=== PATIENT | male | born 1985 | race Caucasian/White ===

== ENCOUNTER 2017-04-06 12:25 | Emergency (ER) | payer BC, SELFPAY ==
--- NOTE | 2017-04-06 13:32 | HMH.EDUTC ---
[facility] – [place] Disposition Clinical Impression: URI (upper respiratory infection) Qualifiers: URI type: unspecified URI Qualified Code(s): J06.9 - Acute upper respiratory infection, unspecified Disposition: Home, Self-Care Condition on Discharge: Good Instructions: DI for Cough -- Adult, Sore Throat, DI for Sinusitis Additional Instructions: * Monitor Temp. Tylenol and/or Ibuprofen as needed. ER if fever is no less than 101 despite alternating Tylenol and Ibuprofen * Encourage fluids, water, Gatorade, powerade, pedialyte if /toddler/or child * Warm salt water gargles for throat irritation *Warm fluids *Sore throat lozenges *Sleep elevated *humidifier or vaporizer Lots of rest Increase fluids, water, Gatorade, powerade Follow up IMMEDIATELY for new or worsening of symptoms OR no noticeable improvement over the next 48-72 hours. 911 immediately for any life threatening symptoms such as chest pain or difficulty breathing Prescriptions: Azithromycin [Z-Drew 250mg Tab] 250 mg PO UD DOSE PK #6 tab Dextromethorphan Polistirex [Delsym] 10 ml PO Q12H PRN #300 med.er.12h PRN Reason: Cough Fluticasone Propionate [Flonase 50mcg nasal spray 16gm] 2 spr NS DAILY #1 bottle predniSONE [Prednisone 5mg Tab Dose-Pack] 5 mg PO UD DOSE PK #21 pack Referrals: Jordana Sykes [Primary Care Provider] - As needed Time of Disposition: 14:25 Medical Decision Making - Medical Records Medical records reviewed: Yes: I reviewed the patient's medical records. Vital Signs: 04/06/17 13:37 Temperature 97.5 F L Temperature Source Temporal Artery Scan Pulse Rate [Right Radial] 72 Respiratory Rate 20 Blood Pressure [Right Arm] 127/88 Blood Pressure Mean [Right Arm] 101 Blood Pressure Source [Right Arm] Automatic Cuff Blood Pressure Position [Right Arm] Sitting 02 Sat by Pulse Oximetry 96 Oxygen Delivery Method Room Air - Lab Data Lab results reviewed: Yes: I reviewed the patient's lab results. Lab Results 04/06/17 13:53: Influenza Type A Ag Negative, Influenza Type B Ag Negative, Strep Scn Rapid Clinic Negative - Uday Inquiry Pt receiving controlled substance: No Uday was queried for this patient: No [facility] [place] HPI - General Stated complaint: nausea sore throat r ear pain congestion - History of Present Illness Provider Complaint: Patient state that he has had sorethroat, sinus pain and pressure along with ear aches for the last week State that he has felt feverish, had chills and over all not felt well State that today his son is sick also so they came in to get checked out State that also he is currently being treated for problems with his right ear and awaiting CT results by doctor - Related Data Previous Rx's Medication Instructions Recorded Azithromycin [Z-Drew 250mg Tab] 250 mg PO UD DOSE PK #6 tab 04/06/17 Dextromethorphan Polistirex 10 ml PO Q12H PRN #300 med.er.12h 04/06/17 [Delsym] Fluticasone Propionate [Flonase 2 spr NS DAILY #1 bottle 04/06/17 50mcg nasal spray 16gm] predniSONE [Prednisone 5mg Tab 5 mg PO UD DOSE PK #21 pack 04/06/17 Dose-Pack] Allergies Allergy/AdvReac Type Severity Reaction Status Date / Time No Known Allergies Allergy Verified 04/06/17 13:42 [facility] History I have reviewed the patient's past medical history: Yes ROS Obtained: Yes All systems reviewed & no additional complaints Physical Exam - General General appearance: alert, in no apparent distress - Expanded ENT Exam Nose exam: Present: sinus tenderness, other (Tenderness noted maxillary sinus report thick yellowish green mucous from nose) Comment: Throat red, irritated - Respiratory Respiratory exam: Present: normal lung sounds bilaterally. Absent: respiratory distress - Cardiovascular Cardiovascular exam: Present: regular rate, normal rhythm. Absent: JVD - Neurological Exam Neurological exam: Present: alert, oriented X3
[2017-04-06 13:37] VITALS: BP 127/88; PULSE 72; RESP 20; TEMP 36.4; O2SAT 96; BMI 35.3
--- NOTE | 2017-04-06 13:42 | ED_ITS ---
[facility] [place] Disposition Clinical Impression: URI (upper respiratory infection) Qualifiers: URI type: unspecified URI Qualified Code(s): J06.9 - Acute upper respiratory infection, unspecified Disposition: Home, Self-Care Condition on Discharge: Good Instructions: DI for Cough -- Adult, Sore Throat, DI for Sinusitis Additional Instructions: * Monitor Temp. Tylenol and/or Ibuprofen as needed. ER if fever is no less than 101 despite alternating Tylenol and Ibuprofen * Encourage fluids, water, Gatorade, powerade, pedialyte if /toddler/or child * Warm salt water gargles for throat irritation *Warm fluids *Sore throat lozenges *Sleep elevated *humidifier or vaporizer Lots of rest Increase fluids, water, Gatorade, powerade Follow up IMMEDIATELY for new or worsening of symptoms OR no noticeable improvement over the next 48-72 hours. 911 immediately for any life threatening symptoms such as chest pain or difficulty breathing Prescriptions: Azithromycin [Z-Drew 250mg Tab] 250 mg PO UD DOSE PK #6 tab Dextromethorphan Polistirex [Delsym] 10 ml PO Q12H PRN #300 med.er.12h PRN Reason: Cough Fluticasone Propionate [Flonase 50mcg nasal spray 16gm] 2 spr NS DAILY #1 bottle predniSONE [Prednisone 5mg Tab Dose-Pack] 5 mg PO UD DOSE PK #21 pack Referrals: Jordana Sykes [Primary Care Provider] - As needed Time of Disposition: 14:25 Medical Decision Making - Medical Records Medical records reviewed: Yes: I reviewed the patient's medical records. Vital Signs: 04/06/17 13:37 Temperature 97.5 F L Temperature Source Temporal Artery Scan Pulse Rate [Right Radial] 72 Respiratory Rate 20 Blood Pressure [Right Arm] 127/88 Blood Pressure Mean [Right Arm] 101 Blood Pressure Source [Right Arm] Automatic Cuff Blood Pressure Position [Right Arm] Sitting 02 Sat by Pulse Oximetry 96 Oxygen Delivery Method Room Air - Lab Data Lab results reviewed: Yes: I reviewed the patient's lab results. Lab Results 04/06/17 13:53: Influenza Type A Ag Negative, Influenza Type B Ag Negative, Strep Scn Rapid Clinic Negative - Uday Inquiry Pt receiving controlled substance: No Uday was queried for this patient: No [facility] [place] HPI - General Stated complaint: nausea sore throat r ear pain congestion - History of Present Illness Provider Complaint: Patient state that he has had sorethroat, sinus pain and pressure along with ear aches for the last week State that he has felt feverish , had chills and over all not felt well State that today his son is sick also so they came in to get checked out State that also he is currently being treated for problems with his right ear and awaiting CT results by doctor - Related Data Previous Rx's Medication Instructions Recorded Azithromycin [Z-Drew 250mg Tab] 250 mg PO UD DOSE PK #6 tab 04/06/17 Dextromethorphan Polistirex 10 ml PO Q12H PRN #300 med.er.12h 04/06/17 [Delsym] Fluticasone Propionate [Flonase 2 spr NS DAILY #1 bottle 04/06/17 50mcg nasal spray 16gm] predniSONE [Prednisone 5mg Tab 5 mg PO UD DOSE PK #21 pack 04/06/17 Dose-Pack] Allergies Allergy/AdvReac Type Severity Reaction Status Date / Time No Known Allergies Allergy Verified 04/06/17 13:42 [facility] History I have reviewed the patient's past medical history: Yes ROS Obtained: Yes All systems reviewed & no additional complaints Physical
[2017-04-06 13:56] LABS: UTC Influenza A Antigen Negative (Negative); UTC Influenza B Antigen Negative (Negative); UTC Strep Screen (Rapid) Negative (Negative)
[2017-04-06 14:37] VITALS: BP 130/67; PULSE 92; RESP 20; TEMP 36.9; O2SAT 100
== END 2017-04-06 14:37 | disposition home or self-care (01) ==
PROVIDERS: Emergency Provider Nurse Practitioner; PCP Family Medicine
DX: J06.9 Acute upper respiratory infection, unspecified (principal)
CPT/HCPCS: 87804; 87880; 99202

== ENCOUNTER 2019-05-26 14:17 | Emergency (ER) | payer BC, SELFPAY ==
[2019-05-26 14:28] VITALS: PULSE 97; RESP 18; TEMP 36.8; O2SAT 97; BMI 34.2
--- NOTE | 2019-05-26 15:32 | HMH.COUGH ---
Cough Clinic HPI - History of Present Illness Complaint:: Recent contact with positive case, work made him come to clinic HPI:: 33-year-old otherwise healthy male who works at the [employer]. Had contact with a recently diagnosed positive case approximately 10 to 12 days ago per his recollection. Denies any symptoms. States he has had no cough, congestion, fever, GI symptoms, headache, body aches, fatigue. Was told by work that he needed to quarantine and come to the clinic for a note attesting to such. Otherwise at baseline today. Home Medications: Home Medications Medication Instructions Recorded Confirmed Type No Known Home Medications 05/26/19 05/26/19 History Allergies/Adverse Reactions: Allergies Allergy/AdvReac Type Severity Reaction Status Date / Time No Known Allergies Allergy Verified 05/26/19 14:27 [facility] Triage - Symptoms Fever History: No Chills: No Myalgia: No Nasal Drainage: No Sore Throat: No Productive Cough: No Non-productive Cough: No Ear or Sinus Pain: No Joint Pain: No Chest Pain: No Rash: No Shortness of Breath: No Nausea or Vomitting: No Headache: No Abdominal Pain: No Diarrhea: No - Exposure History Foreign Travel: No Direct Contact with COVID-19 Patient: Yes If YES, Who:: jhon When:: 05/16/19 Distance/Proximity to Contact:: close Length of Time in Direct Contact:: 6 hours - Risk Factors Greater than 60 Years Old: No COPD: No Diabetes: No Heart Disease: No Home Oxygen Use: No Chronic Renal Disease: No Chronic Liver Disease: No Neurologic/Neurodevelopmental/intellectual disability: No Other Chronic Diseases: No Current Smoker: Yes Former Smoker: No [facility] History I have reviewed the patient's past medical history: Yes Medical History: Denies:: Cancer, Diabetes Mellitus Type 1, Diabetes Mellitus Type 2, Hypertension, MRSA Other Medical History: Reports: Other (kidney stones) Laterality Cases: Bilateral: Tonsillectomy Other Surgeries: Yes: Other Amputation: No Comment: ear, hand, kidney stones removed - 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 Smoking Status: Current every day smoker Tobacco Type: cigarettes # Packs/Day (cigarettes): 1 Alcohol Intake: never Substance Use Type: denies use Occupational Status: other Family Hx:: Non-contributory ROS Obtained: Yes All systems reviewed & no additional complaints Cough Clinic Exam - General General appearance: alert, in no apparent distress - Head Head exam: atraumatic, normocephalic, normal inspection - Eye Eye exam: Present: normal appearance, PERRL, EOMI - ENT ENT exam: Present: normal exam, normal oropharynx, mucous membranes moist, TM's normal bilaterally, normal external ear exam - Neck Neck exam: Present: normal inspection, full ROM, trachea midline. Absent: meningismus, lymphadenopathy - Chest Chest inspection: Present: normal inspection, symmetric chest wall rise. Absent: tenderness - Respiratory Respiratory exam: Present: normal lung sounds bilaterally. Absent: respiratory distress - Cardiovascular Cardiovascular exam: Present: regular rate, normal rhythm. Absent: JVD - Extremities Exam Extremities exam: Present: normal inspection, full ROM, normal capillary refill. Absent: calf tenderness - Neurological Exam Neurological exam: Present: alert, oriented X3 - Skin Skin exam: Present: warm, dry, intact, normal color - Lymphatic Lymphatic Findings: no adenopathy Cough Clinic MDM Vital Signs: 05/26/19 14:28 Temperature 98.3 F Temperature Source Oral Pulse Rate [Right Brachial] 97 H Respiratory Rate 18 02 Sat by Pulse Oximetry 97 Oxygen Delivery Method Room Air Medical Decision Narrative: 33-year-old male with no symptoms of coronavirus. Last exposure conservative and of 10 days ago to a recently diagnosed positive case. Recommend patient continuing quarantine at home for 1 more week with return to work on Wednesday, June 04 as long as he remains asymptomatic. No treatment n
[2019-05-26 16:07] VITALS: BP 150/80; PULSE 80; RESP 18; TEMP 36.8; O2SAT 98
== END 2019-05-26 16:07 | disposition home or self-care (01) ==
PROVIDERS: Emergency Provider Internal Medicine Adolescent Medicine
DX: Z20.828 Contact with and (suspected) exposure to other viral communicable diseases (principal)
CPT/HCPCS: 99201; 99212

== ENCOUNTER 2019-11-06 22:49 | Emergency (ER) | payer BC, SELFPAY ==
[2019-11-06 22:58] VITALS: BP 119/61; PULSE 75; RESP 16; TEMP 36.6; O2SAT 99; BMI 34.2
--- NOTE | 2019-11-06 23:05 | CT_ITS ---
PROCEDURE: CT ABDOMEN PELVIS WO CON CLINICAL INDICATION: KIDNEY STONE RULE OUT Right flank pain COMPARISON: No exams were available for comparison TECHNIQUE: Axial images obtained with sagittal and coronal reformats. All CT scans at the facility use one or more dose reduction, viz: automated exposure control, ma/kV adjustment per patient size (including targeted exams where dose is matched to indication, i.e. head), or iterative reconstruction technique. FINDINGS: LOWER THORAX: On the most superior image there is a 4 mm subpleural opacity in the right middle lobe anteriorly nonspecific ABDOMEN & PELVIS: The liver, gallbladder, adrenal glands, and pancreas have an unremarkable appearance. There is mild splenomegaly at 14 cm. There are bilateral renal calculi which measure up to 6 mm in the lower pole on the left and 3 mm in the upper pole on the right. There is mild right hydronephrosis secondary to a 5 mm stone in the proximal right ureter at the ureteral pelvic junction. No distal ureteral calculi. Unremarkable appendix. No intestinal obstruction or free air. There are few small mesenteric lymph nodes. There is a small right inguinal hernia which contains fat. No acute bony findings. IMPRESSION: 1. 5 mm stone in the right ureteropelvic junction with mild right hydronephrosis 2. Bilateral nephrolithiasis. 3. Other nonspecific nonacute findings as described above. Dictated by: Jessee Martinez MD 11/07/2019 06:25 Jessee Martinez MD in [place] 11/07/2019 06:25
[2019-11-06 23:11] LABS: Basophils # 0.1 K/mm3 (0-0.2); Basophils % 0.9 % (0.1-2.0); Eosinophils # 0.2 K/mm3 (0.0-0.4); Eosinophils % 2.2 % (0.1-12.0); Hematocrit 51.5 % (42.0-52.0); Hemoglobin 17.7 g/dL (14.1-18.0); Lymphocytes # 3.7 K/mm3 (0.7-4.5); Lymphocytes % 34.2 % (10-50); Mean Corpuscular HGB Conc 34.3 g/dL (31.8-35.4); Mean Corpuscular Hemoglobin 29.9 pg (27.0-31.2); Mean Corpuscular Volume 87.1 fl (80-94); Mean Platelet Volume 6.6 fl (7.4-10.4); Monocytes # 0.8 K/mm3 (0.1-1.0); Monocytes % 7.6 % (1.7-9.3); Neutrophils % 55.1 % (37.0-80.0); Platelet Count 438 K/mm3 (142-424); Red Blood Count 5.92 M/mm3 (4.60-6.20); Red Cell Distribution Width 12.6 % (11.5-17.5); White Blood Count 10.9 K/mm3 (4.8-10.8)
[2019-11-06 23:19] LABS: Chloride 101 mmol/L (98-107)
[2019-11-06 23:20] LABS: Potassium 3.3 mmoL/L (3.5-5.1); Sodium 141 mmol/L (136-145)
[2019-11-06 23:22] LABS: Alanine Aminotransferase 60 U/L (12-78); Alkaline Phosphatase 85 U/L (38-126); Amylase 136 U/L (30-110); Anion Gap 16.3 mEq/L (5-15); Aspartate Amino Transferase 39 U/L (17-59); Bilirubin,Total 0.6 mg/dl (0.2-1.3); Blood Urea Nitrogen 22 mg/dl (9-20); Calcium 10.2 mg/dl (8.4-10.2); Carbon Dioxide 27 mmol/L (22.0-30.0); Creatinine Clearance Estimated 134 mL/min (50-200); Estimated Glomerular Filt Rate 63 ml/min (>60); GFR (African American) 76 ML/MIN (>60); Glucose 112 mg/dl (74-100); Lipase 110 U/L (23-300)
[2019-11-06 23:23] LABS: Albumin Level 5.3 g/dl (3.5-5.0); Albumin/Globulin Ratio 1.4 (1.1-1.8); Globulin 3.8 g/dL (1.3-3.2); Total Protein,Serum 9.1 g/dl (6.3-8.2)
[2019-11-06 23:50] VITALS: BP 122/85; PULSE 64; RESP 18; O2SAT 100
--- NOTE | 2019-11-07 00:04 | HMH.EDNVD ---
ED Disposition Clinical Impression: Renal colic, Renal insufficiency Disposition: Home, Self-Care Condition on Discharge: Good Instructions: DI for Kidney Stones Additional Instructions: fluids and call urology in am Prescriptions: Tamsulosin HCl [Flomax 0.4mg capsule] 0.4 mg PO HS #10 cap Transmission Status: Pending to [facility] #[id number] Referrals: PCP,No [Primary Care Provider] - Hadley Lin MD [Staff Physician] - - Critical Care Critical Care Time: No Attestation: On 11/06/19, the high probability of a clinically significant, sudden or life threatening deterioration of the following system(s) required my full and direct attention, intervention and personal management. The time I documented below is in addition to time spent performing reported procedures but includes the following listed in this critical care notation. Medical Decision Making - Medical Records Medical records reviewed: Yes: I reviewed the patient's medical records. - Uday Inquiry Pt receiving controlled substance: No Vital Signs: 11/06/19 22:58 11/06/19 23:50 Temperature 97.9 F Temperature Source Oral Pulse Rate [Right Brachial] 75 64 Respiratory Rate 16 18 Blood Pressure [Right Arm] 119/61 122/85 Blood Pressure Mean [Right Arm] 80 97 Blood Pressure Source [Right Arm] Automatic Cuff Blood Pressure Position [Right Arm] Sitting 02 Sat by Pulse Oximetry 99 100 Oxygen Delivery Method Room Air Room Air - Lab Data Lab results reviewed: Yes: I reviewed the patient's lab results. Lab Results 11/06/19 23:05: WBC 10.9 H, RBC 5.92, Hgb 17.7, Hct 51.5, MCV 87.1, MCH 29.9, MCHC 34.3, RDW 12.6, Plt Count 438 H, MPV 6.6 L, Neut % (Auto) 55.1, Lymph % (Auto) 34.2, [place] % (Auto) 7.6, Eos % (Auto) 2.2, Baso % (Auto) 0.9, Neut # (Auto) 6.0, Lymph # (Auto) 3.7, [place] # (Auto) 0.8, Eos # (Auto) 0.2, Baso # (Auto) 0.1 11/06/19 23:05: Sodium 141, Potassium 3.3 L, Chloride 101, Carbon Dioxide 27, Anion Gap 16.3 H, BUN 22 H, Creatinine 1.30 H, Estimated Creat Clear 134, Estimated GFR 63, Est GFR ( Amer) 76, Glucose 112 H, Calcium 10.2, Total Bilirubin 0.6, AST 39, ALT 60, Alkaline Phosphatase 85, Total Protein 9.1 H, Albumin 5.3 H, Globulin 3.8 H, Albumin/Globulin Ratio 1.4, Amylase 136 H, Lipase 110 Result diagrams: 11/06/19 23:05 11/06/19 23:05 Orders (Tests/Meds): ED MEDICATIONS Generic Name Dose Route Start Last Admin Trade Name Freq PRN Reason Stop Dose Admin Sodium Chloride 1,000 mls @ 999 mls/hr 11/06/19 23:15 11/06/19 23:15 Sod Chlor 0.9% 1000ml Bag IV 11/07/19 00:15 999 mls/hr .Q1H1M RONAK Administration Tamsulosin HCl 0.4 mg 11/07/19 00:14 11/07/19 00:15 Flomax 0.4mg Capsule PO 12/07/19 00:13 0.4 mg HS RONAK Administration Discontinued Medications Generic Name Dose Route Start Last Admin Trade Name Freq PRN Reason Stop Dose Admin Ketorolac Tromethamine 30 mg 11/06/19 23:03 11/06/19 23:12 Toradol 30mg/Ml Vial IV 11/06/19 23:04 30 mg ONCE ONE Administration Morphine Sulfate 4 mg 11/06/19 23:50 11/06/19 23:52 Morphine 4mg/Ml Syringe IV 11/06/19 23:51 4 mg ONCE ONE Administration Ondansetron HCl 4 mg 11/06/19 23:03 11/06/19 23:12 Zofran 4mg/2ml Vial IV 11/06/19 23:04 4 mg ONCE ONE Administration Tamsulosin HCl 0.4 mg 11/07/19 21:00 Flomax 0.4mg Capsule PO 12/07/19 20:59 HS RONAK ORDERS Category Date Time Status CT abdomen pelvis wo con Stat Cat Scan 11/06/19 23:05 Taken Urinalysis and Microscopic Stat Lab 11/06/19 23:04 Ordered - CT Data CT Scan: Abdomen, Pelvis Time Received: 00:[address] Reviewed: Yes: I have viewed the radiologist's interpretation Preliminary Findings: Abnormal (4 mm rt prox stone ) Nausea/Vomiting/Diarrhea HPI - General Chief complaint: Back Pain/Injury Stated complaint: right flank pain Time Seen by Provider: 11/06/19 23:15 Mode of Arrival: Ambulatory Source of Information: Patient, Spou
[2019-11-07 00:52] VITALS: BP 110/62; PULSE 62; RESP 14; TEMP 36.6; O2SAT 99
== END 2019-11-07 00:57 | disposition home or self-care (01) ==
PROVIDERS: Emergency Provider Emergency Medicine
DX: N23 Unspecified renal colic (principal); N28.9 Disorder of kidney and ureter, unspecified; Z87.442 Personal history of urinary calculi; F17.210 Nicotine dependence, cigarettes, uncomplicated
CPT/HCPCS: 74176; 80053; 82150; 83690; 85025; 96365; 96375; 99283; J2405

== ENCOUNTER → 2019-11-14 14:46 | Outpatient (CLI) | payer BC, SELFPAY ==
--- NOTE | 2019-11-14 14:50 | XR_ITS ---
PROCEDURE: XR KUB CLINICAL INDICATION: ureteral stone Right-sided flank pain COMPARISON: CT CT ABDOMEN PELVIS WO CON from 11/06/2019 FINDINGS: There is a 3 mm stone in the mid right ureter between the L3 and L4 transverse process. There is a 6 mm stone overlying the lower pole of the left kidney. A 2 mm stone is present in the upper pole of the right kidney. IMPRESSION: Bilateral nephrolithiasis with 3 mm right mid ureteral stone Dictated by: Jessee Martinez MD 11/14/2019 17:31 Jessee Martinez MD in [place] 11/14/2019 17:31
== END ==
PROVIDERS: Visit Provider Urology
DX: N20.1 Calculus of ureter (principal)
CPT/HCPCS: 74018

== ENCOUNTER → 2019-11-28 14:39 | Outpatient (CLI) | payer BC, SELFPAY ==
--- NOTE | 2019-11-28 14:42 | XR_ITS ---
PROCEDURE: XR KUB CLINICAL INDICATION: kidney stone COMPARISON: CT CT ABDOMEN PELVIS WO CON from 11/06/2019 FINDINGS: 7 mm stone overlies the lower pole of the left kidney. No other significant anomalies are evident. IMPRESSION: Left nephrolithiasis. Dictated by: Jessee Martinez MD 11/28/2019 15:05 Jessee Martinez MD in [place] 11/28/2019 15:05
== END ==
PROVIDERS: Visit Provider Pathology Anatomic Pathology & Clinical Pathology
DX: N20.0 Calculus of kidney (principal)
CPT/HCPCS: 74018

== ENCOUNTER → 2019-12-05 14:45 | Outpatient (CLI) | payer BC, SELFPAY ==
--- NOTE | 2019-12-05 14:47 | XR_ITS ---
PROCEDURE: XR KUB CLINICAL INDICATION: kidney stone COMPARISON: CT CT ABDOMEN PELVIS WO CON from 11/06/2019 FINDINGS: A 7 mm stone overlies the lower pole of the left kidney. There are 2 calcific densities in the right pelvic region overlying the lateral aspect of the sacrum and could be due to phleboliths or small ureteral calculi each measuring 3 mm. IMPRESSION: Left nephrolithiasis. Small right distal ureteral calculi versus phleboliths Dictated by: Jessee Martinez MD 12/05/2019 15:41 Jessee Martinez MD in [place] 12/05/2019 15:41
== END ==
PROVIDERS: PCP Internal Medicine Adolescent Medicine; Visit Provider Urology
DX: N20.0 Calculus of kidney (principal)
CPT/HCPCS: 74018

== ENCOUNTER → 2019-12-09 09:48 | Outpatient (CLI) | payer BC, SELFPAY ==
[2019-12-09 10:50] LABS: Basophils # 0.1 K/mm3 (0-0.2); Basophils % 0.7 % (0.1-2.0); Eosinophils # 0.2 K/mm3 (0.0-0.4); Eosinophils % 2.3 % (0.1-12.0); Hematocrit 46.6 % (42.0-52.0); Hemoglobin 16.2 g/dL (14.1-18.0); Lymphocytes # 1.9 K/mm3 (0.7-4.5); Lymphocytes % 25.8 % (10-50); Mean Corpuscular HGB Conc 34.8 g/dL (31.8-35.4); Mean Corpuscular Hemoglobin 30.1 pg (27.0-31.2); Mean Corpuscular Volume 86.6 fl (80-94); Mean Platelet Volume 7.1 fl (7.4-10.4); Monocytes # 0.6 K/mm3 (0.1-1.0); Monocytes % 8.6 % (1.7-9.3); Neutrophils # 4.6 K/mm3 (1.8-7.8); Neutrophils % 62.6 % (37.0-80.0); Platelet Count 355 K/mm3 (142-424); Red Blood Count 5.39 M/mm3 (4.60-6.20); Red Cell Distribution Width 13.2 % (11.5-17.5); White Blood Count 7.3 K/mm3 (4.8-10.8)
[2019-12-09 12:18] LABS: Alanine Aminotransferase 71 U/L (12-78); Albumin Level 4.8 g/dl (3.5-5.0); Albumin/Globulin Ratio 1.6 (1.1-1.8); Alkaline Phosphatase 82 U/L (38-126); Anion Gap 13.1 mEq/L (5-15); Aspartate Amino Transferase 40 U/L (17-59); Bilirubin,Total 0.8 mg/dl (0.2-1.3); Blood Urea Nitrogen 20 mg/dl (9-20); Calcium 9.9 mg/dl (8.4-10.2); Carbon Dioxide 31 mmol/L (22.0-30.0); Chloride 101 mmol/L (98-107); Cholesterol 233 mg/dl (140-200); Estimated Glomerular Filt Rate 77 ml/min (>60); GFR (African American) 93 ML/MIN (>60); Glucose 91 mg/dl (74-100); HDL Cholesterol 39 mg/dl (40-60); Potassium 4.1 mmoL/L (3.5-5.1); Sodium 141 mmol/L (136-145); Total Protein,Serum 7.8 g/dl (6.3-8.2); Triglycerides 109 mg/dl (30-150); VLDL Cholesterol 22 mg/dL (0-40)
[2019-12-09 12:29] LABS: Direct LDL Cholesterol 154.73 mg/dL (100-129)
[2019-12-09 13:08] LABS: Vitamin B12 468 pg/mL (239-931)
== END ==
PROVIDERS: Visit Provider Internal Medicine Adolescent Medicine
DX: R07.9 Chest pain, unspecified (principal); R53.83 Other fatigue; R53.81 Other malaise
CPT/HCPCS: 36415; 80053; 80061; 82306; 82607; 84443; 85025

== ENCOUNTER → 2019-12-15 12:36 | Outpatient (CLI) | payer BC, SELFPAY ==
--- NOTE | 2019-12-15 12:38 | XR_ITS ---
PROCEDURE: XR KUB CLINICAL INDICATION: ureteral stone Left flank pain COMPARISON: CT CT ABDOMEN PELVIS WO CON from 11/06/2019 FINDINGS: There is a 7 mm stone overlying the lower pole of the left kidney. No obvious ureteral calculus. No acute bony findings. IMPRESSION: Left nephrolithiasis Dictated by: Jessee Martinez MD 12/15/2019 13:57 Jessee Martinez MD in [place] 12/15/2019 13:57
== END ==
PROVIDERS: PCP Internal Medicine Adolescent Medicine; Visit Provider Urology
DX: N20.1 Calculus of ureter (principal)
CPT/HCPCS: 74018

== ENCOUNTER → 2019-12-16 10:47 | Outpatient (CLI) | payer BC, SELFPAY ==
[2019-12-16 11:32] LABS: Basophils # 0.2 K/mm3 (0-0.2); Basophils % 2.2 % (0.1-2.0); Eosinophils # 0.2 K/mm3 (0.0-0.4); Eosinophils % 3.1 % (0.1-12.0); Hematocrit 48.2 % (42.0-52.0); Hemoglobin 16.5 g/dL (14.1-18.0); Lymphocytes # 1.9 K/mm3 (0.7-4.5); Lymphocytes % 25.1 % (10-50); Mean Corpuscular HGB Conc 34.2 g/dL (31.8-35.4); Mean Corpuscular Hemoglobin 29.9 pg (27.0-31.2); Mean Corpuscular Volume 87.6 fl (80-94); Mean Platelet Volume 14.3 fl (7.4-10.4); Monocytes # 0.6 K/mm3 (0.1-1.0); Monocytes % 7.8 % (1.7-9.3); Neutrophils # 4.6 K/mm3 (1.8-7.8); Neutrophils % 61.9 % (37.0-80.0); Platelet Count 311 K/mm3 (142-424); Red Blood Count 5.51 M/mm3 (4.60-6.20); Red Cell Distribution Width 16.4 % (11.5-17.5); White Blood Count 7.4 K/mm3 (4.8-10.8)
[2019-12-16 12:32] LABS: Chloride 101 mmol/L (98-107)
[2019-12-16 12:33] LABS: Potassium 4.5 mmoL/L (3.5-5.1); Sodium 143 mmol/L (136-145)
[2019-12-16 12:35] LABS: Blood Urea Nitrogen 19 mg/dl (9-20); Estimated Glomerular Filt Rate 77 ml/min (>60); GFR (African American) 93 ML/MIN (>60)
[2019-12-16 12:36] LABS: Anion Gap 14.5 mEq/L (5-15); Carbon Dioxide 32 mmol/L (22.0-30.0); Glucose 89 mg/dl (74-100)
[2019-12-16 12:54] LABS: Coronavirus 19 IgG Antibody Negative (Negative); Coronavirus 19 IgM Antibody Negative (Negative)
== END ==
PROVIDERS: Visit Provider Urology
DX: N20.1 Calculus of ureter (principal); Z01.818 Encounter for other preprocedural examination
CPT/HCPCS: 36415; 80048; 85025; 86328

== ENCOUNTER 2019-12-18 07:26 | Day surgery (SDC) | payer BC, SELFPAY ==
[2019-12-18] VITALS (11 sets, daily range): BP systolic 123–151; BP diastolic 85–102; PULSE 71–95; RESP 16–20; TEMP 36.6–43; O2SAT 94–98; BMI 33.7
--- NOTE | 2019-12-18 09:42 | XR_ITS ---
PROCEDURE: XR ABDOMEN MIN 2V CLINICAL INDICATION: RIGHT STONE EXTRACTION COMPARISON: No exams were available for comparison FINDINGS: Fluoroscopy time: 1 minutes and 50 seconds. Multiple images are submitted during the left ureteral stent procedure. IMPRESSION: C-arm utilization for right ureteral procedure Dictated by: Jessee Martinez MD 12/18/2019 13:34 Jessee Martinez MD in [place] 12/18/2019 13:34
--- NOTE | 2019-12-18 09:44 | P.PN_ITS ---
[facility] Anesthesia Checklist - Patient Identification Patient Identification: Arm Band - Structural Data Admitted From: Home Planned Operative Procedure/s: Right Ureteroscopy with stone extraction Consent for Planned Operative Procedure(s) Verified: Yes Verified Documents: Surgical Consent, History and Physical - NPO Status Verified Time NPO: 00:00 - Additional verifications Anesthesia Reactions: No Hx Blood Transfusions: No Blood Transfusion Reaction: No - Airway Assessment C-Spine Mobility Assessed: Yes (mp2) TMJ Mobility Assessed: Yes Dentition: Good Dentition - Neurological Assessment Level of Consciousness: Awake, Alert - Anesthesia Plan Anesthesia Risk discussed: Yes Anesthesia Plan: Verified ASA Class: II Anesthesia Type: General [facility] History I have reviewed the patient's past medical history: Yes Medical History: Reports:: Hypertension, Kidney Stones Denies:: Cancer, Diabetes Mellitus Type 1, Diabetes Mellitus Type 2, Internal Pacemaker, MRSA, Seizures *Have you ever received a pneumonia vaccine?: No *Have you received a flu vaccine this season?: Yes Other Medical History: Reports: Other. Denies: Blood Transfusion Reaction Anesthesia experience/problems:: nac Laterality Cases: Bilateral: Tonsillectomy Other Surgeries: Yes: Other. No: Pacemaker Amputation: No Fractures: No - *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 Last grade of school completed: High school graduate Smoking Status: Light tobacco smoker Tobacco Type: cigarettes # Packs/Day (cigarettes): 1 Alcohol Intake: never Substance Use Type: denies use *Occupational Status:: employed Housing: house Household Members: significant other *Travel in the last 8 weeks: None Family Hx:: Heart Attack, Hyperlipidemia, Hypertension
--- NOTE | 2019-12-18 09:45 | HMH.ANESI ---
[facility] Anesthesia Record Part I Intake, IV Amount: 800 Estimated blood loss (mL): 0 Urine output (mL): 0 Blood Pressure: 151/94 SaO2: 94 Pulse Rate: 85 Respiratory Rate: 16 Temperature: 97.9 F Patient is:: Drowsy, Stable Stable to PACU at:: 09:40
--- NOTE | 2019-12-18 09:57 | PC.NURSE ---
0957-attempted to void per urinal at this time, unsucessful, pt drinking water without difficulty, will continue to monitor
--- NOTE | 2019-12-18 10:12 | PC.NURSE ---
1007-detailed report called to MARY Escobedo 1010-pt transported to post op via stretcher w/nelsy rails up and left in care of MARY Escobedo with bed locked in lowest position, vss, pt stable
--- NOTE | 2019-12-18 10:14 | P.OP_ITS ---
Date of procedure: 12/18/19 Pre-op Diagnosis:: 4 mm right distal ureteral stone Post-op Diagnosis:: Ureteral stone, ureteral stenosis Procedure performed:: Right ureteroscopy dilation of distal ureter stone extraction Surgeon:: Hadley Lin MD POLLUTION CONTROL TECHNICIAN:: Harpreet Butts Anesthesia: GETA Estimated blood loss (mL): 0 Clinical Note:: 34-year-old white male with a 4 mm right distal ureteral stone. He has failed a trial of passage for the last several weeks and wishes to proceed with stone extraction. Operative findings:: The right distal ureter was narrow and was dilated. The ureteroscope revealed a 4 mm distal stone that was removed without difficulty. Operative note:: Patient taken to the operating room after informed consent was obtained. Was placed on the operating table in the supine position and general anesthesia administered. Preoperative antibiotics and sequential compression devices were placed. He was then placed into the dorsal lithotomy position and prepped and draped in the standard surgical fashion. A 22 B[place]ian cystoscope passed into the urethra and into the bladder without difficulty. The bladder was examined in a systematic fashion. No evidence of bladder abnormalities were noted. Ureteral orifices in their normal anatomic position. The right ureteral orifice was cannulated with a 0.035 sensor guidewire and under fluoroscopy passed up to the renal pelvis without difficulty. An obvious calcification was not identified in the ureter. The cystoscope removed and our semirigid ureteroscope then passed into the bladder but the ureter was too narrow to be entered and the ureteroscope removed and our 4 x 15 mm UroMax balloon dilator passed over the guidewire of the distal ureter dilated to 12 cesar for 2 minutes. The balloon then deflated and removed. Our ureteroscope was then repassed and now to pass into the right ureter without difficulty. About 2 inches above the ureteral orifice was noted 4 mm stone. A 2.4 [place]udian stone basket was passed through the ureteroscope and the stone engaged and removed without difficulty. No other stones were noted. The ureteroscope was removed and the cystoscope was replaced. There was efflux of urine noted from the right ureter and a stent was not placed. The bladder drained and the scope removed. Urojet placed into the urethra for comfort measures. Patient tolerated the procedure well no complications were noted. Condition: stable Disposition: PACU Specimens:: Ureteral stone Complications:: None
--- NOTE | 2019-12-18 12:41 | P.PN_ITS ---
[facility] Anesthesia Record Part II Discharge Time: 10:10 Destination: Surgical Day Care (OP Surgery) PACU nurse assessment reviewed?: Yes Patient Condition:: Good Anesthesia Complications:: None Swallowing reflex intact?: Yes Cyanosis?: No Blood Pressure: 123/89 Pulse Rate: 73 Temperature: 98 F Mental Status: Alert & Oriented Pain level:: 0 Nausea and/or vomitting:: None Intake, IV Amount: 0
[2020-01-01 23:44] LABS: Size 3X3 mm; Specimen Type NOT PROVIDED
[2020-01-01 23:45] LABS: Ca oxalate dihydrate 50%; Composition SEE BELOW:
[2020-01-01 23:46] LABS: Photo TO FOLLOW
== END 2019-12-18 10:59 | disposition home or self-care (01) ==
LOC: OR 07:28
PROVIDERS: PCP Internal Medicine Adolescent Medicine; Visit Provider Urology
PROC: 0TJ98ZZ Inspection of Ureter, Via Natural or Artificial Opening Endoscopic (ICD-10-PCS; CPT 52351; principal; 2019-12-18 09:00)
DX: N20.1 Calculus of ureter (principal); I10 Essential (primary) hypertension
CPT/HCPCS: 52352; 52344; 74019; 76000; 82370; 96374; J2405; Q9967

== ENCOUNTER 2019-12-28 13:46 | Emergency (ER) | payer BC, SELFPAY ==
[2019-12-28 14:46] VITALS: BP 140/97; PULSE 81; RESP 19; TEMP 36.6; O2SAT 100; BMI 34.2
--- NOTE | 2019-12-28 14:49 | HMH.EDUTC ---
[facility] [place] Clinical Impression: Close exposure to COVID-19 virus Disposition: Home, Self-Care Condition on Discharge: Good Instructions: Preventing the Spread of Coronavirus Discharge Instructions Additional Instructions: *Monitor Temp, Over the counter Motrin or Tylenol as directed/as needed Tylenol every 4 hours and Motrin every 6 hours (as long as your family doctor has told you that you can take it) for fever or pain. and straight to ER if unable to lower temp less than 101.0 after medication given *Warm salt water gargles may help to soothe the throat *Throat Lozenges *Warm fluids like tea with honey may help to soothe the throat *Sleep elevated *Humidifier/Vaporizer Follow up IMMEDIATELY for new or worsening symptoms or no Noticeable improvement over the next 48-72 hours. 911 for difficulty breathing or swallowing You was tested for today for COVID19 your test result should be back in the next 24-48 hours, you may call to [facility] later today or tomorrow to see if your test results are back and the result [phone] [facility] hours are 9am-9pm You was given a handout with instructions for Self Quarantine and Self isolation for while you wait on test results and what to do if they are positive If you are positive the Health Dept will be contacting you also Referrals: Travis Craft MD [Primary Care Provider] - As needed Forms: Work/School Release Time of Disposition: 14:51 Medical Decision Making - Uday Inquiry Pt receiving controlled substance: No Uday was queried for this patient: No Vital Signs: 12/28/19 14:46 Temperature 97.8 F Temperature Source Oral Pulse Rate [Radial] 81 Respiratory Rate 19 Blood Pressure [Right Arm] 140/97 H Blood Pressure Mean [Right Arm] 111 Blood Pressure Source [Right Arm] Automatic Cuff Blood Pressure Position [Right Arm] Sitting 02 Sat by Pulse Oximetry 100 Oxygen Delivery Method Room Air Orders (Tests/Meds): ORDERS Category Date Time Status Covid-19 Nasal PCR ([facility]) Routine Lab 12/28/19 14:27 [place] [facility] [place] - General Stated complaint: covid exposure Time Seen by Provider: 12/28/19 14:49 Mode of Arrival: Ambulatory Source of Information: Patient Limitations: No Limitations Description of Symptoms (Recalled from Triage Doc. by RN): COVID TEST HEENT Symptoms (Recalled from RN notes): No Resp Symptoms (Recalled from RN notes): No Skin Symptoms (Recalled from RN notes): No MS Symptoms (Recalled from RN notes): No Functional Status (Recalled from RN notes): WNL - History of Present Illness Provider Complaint: Patient was exposed to COVID by son who tested positive yesterday States that he is not having any symptoms but they sent him home from work after finding out that son tested positive for COVID - Related Data Home Medications Medication Instructions Recorded Confirmed Citalopram Hydrobromide 10 mg PO DAILY 12/18/19 12/25/19 [Citalopram 10mg Tablet] hydroCHLOROthiazide 25 mg PO DAILY 12/18/19 12/25/19 [Hydrochlorothiazide] Allergies Allergy/AdvReac Type Severity Reaction Status Date / Time No Known Allergies Allergy Verified 12/25/19 13:38 - Worker's Comp Is this a Worker's Comp case?: No [facility] History - Hepatitis A Screen Drug use history?: No High risk sexual behaviors?: No History of sexually transmitted infection?: No Currently employed?: No Childcare worker?: No Do you have indoor plumbing?: Yes Do you have electricity?: Yes Attestation statement:: This patient has been screened for Hepatitis A risk factors. I have reviewed the patient's past medical history: Yes Medical History: Reports:: Hypertension, Kidney Stones Denies:: Cancer, Diabetes Mellitus Type 1, Diabetes Mellitus Type 2, Internal Pacemaker, MRSA, Seizures Other Medical History: Reports: Other. Denies: Blood Transfusion Reaction Laterality Cases: Bilateral: Tonsillectomy Other Surgeries: Yes: No Previous Surgery, Colonoscopy, Oth
[2019-12-28 15:14] VITALS: BP 140/97; PULSE 81; RESP 19; TEMP 36.6; O2SAT 100
== END 2019-12-28 15:15 | disposition home or self-care (01) ==
PROVIDERS: Emergency Provider Nurse Practitioner; PCP Internal Medicine Adolescent Medicine
DX: U07.1 COVID-19 (principal); I10 Essential (primary) hypertension; F17.210 Nicotine dependence, cigarettes, uncomplicated; Z79.899 Other long term (current) drug therapy
CPT/HCPCS: 99201; U0003

== ENCOUNTER → 2020-05-16 12:13 | Outpatient (CLI) | payer BC, SELFPAY ==
[2020-05-16 12:28] LABS: Basophils # 0.1 K/mm3 (0-0.2); Basophils % 0.8 % (0.1-2.0); Eosinophils # 0.2 K/mm3 (0.0-0.4); Eosinophils % 2.2 % (0.1-12.0); Hematocrit 46.1 % (42.0-52.0); Hemoglobin 15.8 g/dL (14.1-18.0); Lymphocytes # 2.3 K/mm3 (0.7-4.5); Lymphocytes % 24.2 % (10-50); Mean Corpuscular HGB Conc 34.3 g/dL (31.8-35.4); Mean Corpuscular Hemoglobin 29.6 pg (27.0-31.2); Mean Corpuscular Volume 86.3 fl (80-94); Mean Platelet Volume 6.9 fl (7.4-10.4); Monocytes # 0.6 K/mm3 (0.1-1.0); Monocytes % 6.5 % (1.7-9.3); Neutrophils # 6.2 K/mm3 (1.8-7.8); Neutrophils % 66.3 % (37.0-80.0); Platelet Count 361 K/mm3 (142-424); Red Blood Count 5.34 M/mm3 (4.60-6.20); Red Cell Distribution Width 12.9 % (11.5-17.5); White Blood Count 9.3 K/mm3 (4.8-10.8)
[2020-05-16 13:36] LABS: Alanine Aminotransferase 138 U/L (12-78); Albumin Level 4.9 g/dl (3.5-5.0); Albumin/Globulin Ratio 1.7 (1.1-1.8); Alkaline Phosphatase 97 U/L (38-126); Anion Gap 15.5 mEq/L (5-15); Aspartate Amino Transferase 66 U/L (17-59); Bilirubin,Total 0.6 mg/dl (0.2-1.3); Blood Urea Nitrogen 21 mg/dl (9-20); Calcium 9.7 mg/dl (8.4-10.2); Carbon Dioxide 26 mmol/L (22.0-30.0); Chloride 104 mmol/L (98-107); Chol/HDL Ratio 2.9 (1-3.5); Cholesterol 143 mg/dl (140-200); Estimated Glomerular Filt Rate 77 ml/min (>60); GFR (African American) 93 ML/MIN (>60); Globulin 2.9 g/dL (1.3-3.2); Glucose 90 mg/dl (74-100); HDL Cholesterol 49 mg/dl (40-60); Potassium 4.5 mmoL/L (3.5-5.1); Sodium 141 mmol/L (136-145); Total Protein,Serum 7.8 g/dl (6.3-8.2); Triglycerides 84 mg/dl (30-150); VLDL Cholesterol 17 mg/dL (0-40)
[2020-05-16 13:48] LABS: Direct LDL Cholesterol 69.64 mg/dL (100-129)
== END ==
PROVIDERS: Visit Provider Internal Medicine Adolescent Medicine
DX: I10 Essential (primary) hypertension (principal); E78.5 Hyperlipidemia, unspecified
CPT/HCPCS: 36415; 80053; 80061; 85025

== ENCOUNTER → 2021-01-22 08:10 | Outpatient (CLI) | payer BC, SELFPAY ==
[2021-01-22 19:17] LABS: Adenovirus,PCR Not Detected (NotDetected); Bordetella Pertussis Not Detected (NotDetected); Chlamydophila Pneumoniae, PCR Not Detected (NotDetected); Coronavirus 19, PCR Not Detected (NotDetected); Coronavirus NL63 Not Detected (NotDetected); Coronavirus OC43 Not Detected (NotDetected); Coronovirus HKU1,PCR Not Detected (NotDetected); Human Metapneumovirus Not Detected (NotDetected); Influenza A, PCR Not Detected (NotDetected); Influenza AH1, 2009 Not Detected (NotDetected); Influenza AH1, PCR Not Detected (NotDetected); Influenza AH3,PCR Not Detected (NotDetected); Influenza B, PCR Not Detected (NotDetected); Mycoplasma Pneumoniae, PCR Not Detected (NotDetected); Parainfluenza 1, PCR Not Detected (NotDetected); Parainfluenza 2, PCR Not Detected (NotDetected); Parainfluenza 3, PCR Not Detected (NotDetected); Parainfluenza 4, PCR Not Detected (NotDetected); Respiratory Syncytial Virus Not Detected (NotDetected); Rhinovirus/Enterovirus Not Detected (NotDetected)
[2021-01-22 22:02] LABS: Coronavirus 229E Detected (NotDetected)
== END ==
PROVIDERS: PCP Internal Medicine Adolescent Medicine; Visit Provider Nurse Practitioner
DX: U07.1 COVID-19 (principal)
CPT/HCPCS: 87581; 87632; 87798; C9803; U0003; U0005

== ENCOUNTER → 2021-06-19 09:15 | Outpatient (CLI) | payer BC, SELFPAY ==
--- NOTE | 2021-06-19 09:26 | XR_ITS ---
FINAL REPORT CLINICAL HISTORY: PAIN OF LEFT HEEL FINDINGS: LEFT FOOT Three views were obtained. There is no acute fracture or dislocation. The joint spaces appear normal. There is note is made of calcaneal spurs. No soft tissue abnormality is identified. IMPRESSION: No acute process. Reviewed, Interpreted and Dictated by James Rivera III, MD Transcribed by Nahed Morgan Authenticated by James Rivera III, MD on 06/19/2021 10:20:23 AM [facility]
[2021-06-19 09:40] LABS: Microscopic, Urine URINE MICROSCOPIC (MICROSCOPIC)
[2021-06-19 10:05] LABS: Appearance,Urine CLEAR (Clear); Bilirubin,Urine Negative (Negative); Blood, Urine Negative (Negative); Color,Urine YELLOW (Yellow); Glucose,Urine (UA) Negative (Negative); Ketones,Urine Negative (Negative); Leukocyte Esterase,Urine Negative (Negative); Nitrate,Urine Negative (Negative); PH,Urine 6.5 (5.0-8.5); Protein,Urine Negative (Negative); Urobilinogen,Urine 0.2 EU/dl (0.2)
[2021-06-19 10:19] LABS: WBC,Urine Occasional #/hpf (0-3)
[2021-06-19 10:20] LABS: Bacteria,Urine Trace /lpf; Mucus,Urine Trace /lpf; Squamous Epithelial Cell,Urine Occasional #/hpf (0-5)
== END ==
PROVIDERS: PCP Internal Medicine Adolescent Medicine; Visit Provider Nurse Practitioner Family
DX: M79.672 Pain in left foot (principal); N20.0 Calculus of kidney; Z84.1 Family history of disorders of kidney and ureter
CPT/HCPCS: 73630; 81001

== ENCOUNTER → 2021-08-04 00:50 | Outpatient (CLI) | payer BC, SELFPAY ==
[2021-08-04 01:18] LABS: Influenza A, PCR Not Detected (NotDetected); Influenza B, PCR Not Detected (NotDetected)
[2021-08-04 01:47] LABS: Coronavirus 19, PCR Detected (NotDetected)
== END ==
PROVIDERS: PCP Nurse Practitioner Family; Visit Provider Emergency Medicine
DX: U07.1 COVID-19 (principal); R50.9 Fever, unspecified
CPT/HCPCS: C9803; U0003; U0005

== ENCOUNTER → 2021-11-10 11:28 | Outpatient (CLI) | payer BC, SELFPAY | PROVIDERS: PCP Nurse Practitioner Family; Visit Provider Nurse Practitioner Family | DX: R40.0 Somnolence; G47.33 Obstructive sleep apnea (adult) (pediatric); R06.83 Snoring | CPT/HCPCS: G0399 ==

== ENCOUNTER 2022-03-19 08:29 | Emergency (ER) | payer BC, SELFPAY ==
[2022-03-19 08:56] VITALS: BP 148/90; PULSE 74; RESP 15; TEMP 36.9; O2SAT 98; BMI 33.7
--- NOTE | 2022-03-19 09:15 | EXP.UTC ---
Discharge Plan Disposition Patient Disposition: Home, Self-Care Condition: Good Prescriptions Prescriptions: New amoxicillin 875 mg tablet 875 mg PO Q12H Qty: 20 0RF No Action citalopram 10 MG tablet 10 mg PO DAILY hydrochlorothiazide 12.5 MG capsule 25 mg PO DAILY Referrals Follow up/Referrals: Travis Craft MD [Primary Care Provider] - See instructions Activity Restrictions/Add. Instructions Additional Instructions/Restrictions: Take medication as prescribed Follow up with your Family Doctor if no improvement or any worsening of symptoms Return if needed Straight to ER if any life threatening symptoms Clinical Impressions Clinical Impression: Otitis media Instructions Patient Instructions: Middle Ear Infection, Amoxicillin Discharge ED Provider: Roz Ybarra [facility] General Stated complaint: RT ear pain Mode of Arrival: Ambulatory Source of Information: Patient Limitations: No Limitations Time Seen by Provider: 03/19/22 09:15 Description of Symptoms (Recalled from Triage Doc. by RN): c/o right ear shooting pain that started last night. Pt states ear feels warm and he has had some nausea. HEENT Symptoms (Recalled from RN notes): Yes Resp Symptoms (Recalled from RN notes): No Skin Symptoms (Recalled from RN notes): No MS Symptoms (Recalled from RN notes): No Functional Status (Recalled from RN notes): na History of Present Illness Provider Complaint: Patient states that he has been having pain on and off in his right ear that got worse last night States that last night he started having shooting like pain in his right ear that has continued throughout the night and made him feel nauseous Related Data Home Medications Medication Instructions Recorded Confirmed citalopram 10 mg tablet 10 mg PO DAILY Anxiety 12/18/19 12/25/19 hydrochlorothiazide 12.5 mg capsule 25 mg PO DAILY bp 12/18/19 12/25/19 Previous Rx's Medication Instructions Recorded amoxicillin 875 mg tablet 875 mg PO Q12H #20 tabs 03/19/22 Allergies Allergy/AdvReac Type Severity Reaction Status Date / Time No Known Allergies Allergy Verified 12/25/19 13:38 Worker's Comp Is this a Worker's Comp case?: No [facility] Disclaimer: The information contained in this section may have been updated after the patient was seen, as this information can be updated by other users. 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 caffeine: Yes ROS Obtained: Yes All systems reviewed & no additional complaints except as documented and Yes Systems reviewed as appropriate & no additional complaints except as documented Constitutional Constitutional: Reports system reviewed and no additional complaints, except as documented and Reports as per HPI ENT Ears, Nose, Mouth, and Throat: Reports system reviewed and no additional complaints, except as documented, Reports as per HPI and Reports otalgia Cardiovascular Cardiovascular: Reports system reviewed and no additional complaints, except as documented and Reports as per HPI Respiratory Respiratory: Reports system reviewed and no additional complaints, except as documented and Reports as per HPI Gastrointestinal Gastrointestingal: Reports system reviewed and no additional complaints, except as documented, as per HPI and nausea Physical Exam General General appearance: alert and in no apparent distress Expanded ENT Exam TM/Canal exam: Right TM: erythema and loss of landmarks Respiratory Respiratory exam: Present normal lung sounds bilaterally; Absent respiratory distress or wheezes Cardiovascular Cardiovascular exam: Present regular rate, normal rhythm and normal heart sounds Neurological Exam Neuro
[2022-03-19 09:28] VITALS: BP 148/90; PULSE 74; RESP 15; TEMP 36.9; O2SAT 98
== END 2022-03-19 09:29 | disposition home or self-care (01) ==
PROVIDERS: Emergency Provider Nurse Practitioner; PCP Internal Medicine Adolescent Medicine
DX: H66.90 Otitis media, unspecified, unspecified ear (principal)
CPT/HCPCS: 99212; 99213; G0463

== ENCOUNTER 2022-04-26 08:33 | Emergency (ER) | payer BC, SELFPAY ==
[2022-04-26 08:50] VITALS: BP 140/88; PULSE 77; RESP 20; TEMP 36.8; O2SAT 98; BMI 33.6
[2022-04-26 09:19] LABS: UTC Influenza A Antigen Negative (Negative); UTC Strep Screen (Rapid) Negative (Negative)
[2022-04-26 09:20] LABS: UTC Influenza B Antigen Negative (Negative)
--- NOTE | 2022-04-26 09:26 | EXP.UTC ---
Discharge Plan Disposition Patient Disposition: Home, Self-Care Condition: Good Prescriptions Prescriptions: New azithromycin [azithromycin] 250 mg tablet 250 mg PO DIRECTED Qty: 6 0RF Rx Instructions: Take two (2) tablets on day #1, then one (1) tablet day #2 thru #5 fluticasone propionate [fluticasone propionate] 50 mcg/actuation spray,suspension 1 spray intranasal DAILY Qty: 9.9 0RF No Action sertraline 100 mg tablet 100 mg PO DAILY Label Comments: TAKE ONE TABLET BY MOUTH EVERY DAY Referrals Follow up/Referrals: Travis Craft MD [Primary Care Provider] - See instructions Activity Restrictions/Add. Instructions Additional Instructions/Restrictions: Start antibiotic patient to take as ordered for a full length of time even if you feel better. Sinus infections do not get better overnight. It may take 2-3 days to notice much improvement so be sure to use conservative measures as discussed for symptoms. Flonase 1 spray each nostril daily to help with nasal congestion, sinus and ear pressure/information Increase fluids Humidifier/vaporizer as needed Tylenol and ibuprofen as needed for fever or pain. If symptoms do not improve or get worse return or be seen in the ER Follow-up with primary care this week Clinical Impressions Clinical Impression: Sinusitis Instructions Patient Instructions: DI for Sinusitis Discharge ED Provider: John ([facility])Robbie [facility] [place] HPI General Stated complaint: Congestion, drainage, sore throat, cough Mode of Arrival: Ambulatory Source of Information: Patient Limitations: No Limitations Time Seen by Provider: 04/26/22 09:26 Description of Symptoms (Recalled from Triage Doc. by RN): PATIENT C/O COUGH, SORE THROAT, BODY ACHES AND CONGESTION HEENT Symptoms (Recalled from RN notes): Yes Resp Symptoms (Recalled from RN notes): Yes Skin Symptoms (Recalled from RN notes): No MS Symptoms (Recalled from RN notes): No Functional Status (Recalled from RN notes): WNL History of Present Illness Provider Complaint: 36 yr old male presents for sore throat, body aches,cough,sinus pressure,and green/brown nasal drainage for 3-4 days Related Data Home Medications Medication Instructions Recorded Confirmed sertraline 100 mg tablet 100 mg PO DAILY Anxiety 04/26/22 04/26/22 Previous Rx's Medication Instructions Recorded azithromycin 250 mg tablet 250 mg PO DIRECTED #6 tabs 04/26/22 fluticasone propionate 50 1 spray intranasal DAILY #9.9 mL 04/26/22 mcg/actuation nasal spray,suspension Allergies Allergy/AdvReac Type Severity Reaction Status Date / Time No Known Allergies Allergy Verified 12/25/19 13:38 Worker's Comp Is this a Worker's Comp case?: No [facility] Disclaimer: The information contained in this section may have been updated after the patient was seen, as this information can be updated by other users. 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 caffeine: Yes ROS Obtained: Yes All systems reviewed & no additional complaints except as documented Constitutional Constitutional: Reports system reviewed and no additional complaints, except as documented, Reports as per HPI, Reports body ache and Reports fever(s) Eyes Eyes: Reports system reviewed and no additional complaints, except as documented ENT Ears, Nose, Mouth, and Throat: Reports system reviewed and no additional complaints, except as documented, Reports as per HPI, Reports facial pain, Reports nasal congestion, Reports nasal discharge, Reports sinus pain, Reports sinus pressure and Reports sore throat Cardiovascular Cardiovascular: Reports
[2022-04-26 09:34] VITALS: BP 140/88; PULSE 77; RESP 20; TEMP 36.8; O2SAT 98
== END 2022-04-26 09:40 | disposition home or self-care (01) ==
PROVIDERS: Emergency Provider Nurse Practitioner Family; PCP Internal Medicine Adolescent Medicine
DX: J01.90 Acute sinusitis, unspecified (principal); R05.1 Acute cough; F17.210 Nicotine dependence, cigarettes, uncomplicated
CPT/HCPCS: 87804; 87880; 99212; 99214; G0463

== ENCOUNTER 2022-06-15 11:47 | Day surgery (SDC) | payer BC, SELFPAY ==
[2022-06-15] VITALS (18 sets, daily range): BP systolic 124–175; BP diastolic 74–102; PULSE 65–93; RESP 15–18; TEMP -17.7–43; O2SAT 92–98; BMI 33.0
--- NOTE | 2022-06-15 12:10 | PC.NURSE ---
pt unable to urinate at this time
--- NOTE | 2022-06-15 12:13 | PC.NURSE ---
rounded on pt no complaints at this time, call light at bs
[2022-06-15 12:21] LABS: Basophils # 0.1 K/mm3 (0-0.2); Basophils % 0.7 % (0.1-2.0); Eosinophils # 0.2 K/mm3 (0.0-0.4); Eosinophils % 2.4 % (0.1-12.0); Hematocrit 48.4 % (42.0-52.0); Hemoglobin 16.5 g/dL (14.1-18.0); Lymphocytes # 2.8 K/mm3 (0.7-4.5); Mean Corpuscular HGB Conc 34.1 g/dL (31.8-35.4); Mean Corpuscular Hemoglobin 29.6 pg (27.0-31.2); Mean Corpuscular Volume 86.9 fl (80-94); Mean Platelet Volume 7.1 fl (7.4-10.4); Monocytes # 0.8 K/mm3 (0.1-1.0); Monocytes % 8.6 % (1.7-9.3); Neutrophils # 5.6 K/mm3 (1.8-7.8); Neutrophils % 59.2 % (37.0-80.0); Platelet Count 348 K/mm3 (142-424); Red Blood Count 5.57 M/mm3 (4.60-6.20); White Blood Count 9.4 K/mm3 (4.8-10.8)
[2022-06-15 12:31] LABS: Chloride 97 mmol/L (98-107); Sodium 140 mmol/L (136-145)
[2022-06-15 12:32] LABS: Potassium 3.8 mmoL/L (3.5-5.1)
[2022-06-15 12:34] LABS: Alanine Aminotransferase 57 U/L (12-78); Alkaline Phosphatase 101 U/L (38-126); Amylase 123 U/L (30-110); Anion Gap 16.8 mEq/L (5-15); Aspartate Amino Transferase 46 U/L (17-59); Bilirubin,Total 0.7 mg/dl (0.2-1.3); Blood Urea Nitrogen 15 mg/dl (9-20); Calcium 9.2 mg/dl (8.4-10.2); Carbon Dioxide 30 mmol/L (22.0-30.0); Creatinine Clearance Estimated 149 mL/min (50-200); Estimated Glomerular Filt Rate 76 ml/min (>60); GFR (African American) 92 ML/MIN (>60); Glucose 78 mg/dl (74-100)
[2022-06-15 12:35] LABS: Albumin Level 4.7 g/dl (3.5-5.0); Albumin/Globulin Ratio 1.4 (1.1-1.8); Globulin 3.4 g/dL (1.3-3.2); Lipase 131 U/L (23-300); Total Protein,Serum 8.1 g/dl (6.3-8.2)
--- NOTE | 2022-06-15 13:09 | PC.NURSE ---
DR CHINCHILLA AT BEDSIDE
--- NOTE | 2022-06-15 13:19 | CT_ITS ---
FINAL REPORT TECHNIQUE: IV contrast enhanced exam CLINICAL HISTORY: RLQ pain and guarding FINDINGS: Abdomen: Lung bases are clear. The gallbladder is unremarkable. Liver has an unremarkable CT appearance. Contracted gallbladder. The spleen, pancreas and adrenal glands are unremarkable. Bilateral nephrolithiasis without obstruction. Largest stone in the lower pole the left kidney measures 8 mm. Pelvis: Mild stranding surrounding the distal appendix. No significant appendiceal enlargement. Findings may represent early appendicitis. Remaining bowel is unremarkable. Pelvic bowel loops are unremarkable. No fluid collection or adenopathy is seen. Tiny right fat containing inguinal hernia. IMPRESSION: Possible early appendicitis without evidence of rupture or abscess. Consider CT follow-up in 24-48 hours if clinical scenario does not fit the picture for appendicitis. Reviewed, Interpreted and Dictated by Jared Carroll MD Transcribed by Jace Vega Authenticated and [facility]
--- NOTE | 2022-06-15 13:21 | HMH.EDGENADL ---
Discharge Plan Disposition Patient Disposition: Admitted As Inpatient Condition: Good Chief Complaint: Abdominal Pain Prescriptions Prescriptions: No Action sertraline 100 mg tablet 100 mg PO DAILY Label Comments: TAKE ONE TABLET BY MOUTH EVERY DAY azithromycin [azithromycin] 250 mg tablet 250 mg PO DIRECTED Qty: 6 0RF Rx Instructions: Take two (2) tablets on day #1, then one (1) tablet day #2 thru #5 fluticasone propionate [fluticasone propionate] 50 mcg/actuation spray,suspension 1 spray intranasal DAILY Qty: 9.9 0RF Referrals Follow up/Referrals: Erin Calloway APRN [Primary Care Provider] - See instructions Clinical Impressions Clinical Impression: Acute appendicitis Instructions Patient Instructions: DI for Acute Abdominal Pain Discharge ED Provider: Suhas Whitfield General Adult HPI General Chief complaint: Abdominal Pain Stated complaint: Lower RT abd pain Time Seen by Provider: 06/15/22 11:49 Mode of Arrival: Ambulatory Source of Information: Patient Limitations: No Limitations Description of Symptoms (Recalled from ER Triage Doc. by RN): c/o constant lower right quad pain that started last night with nausea. History of Present Illness HPI narrative: This is an otherwise healthy 36-year-old male presenting with right lower quadrant pain and nausea. Patient states that yesterday evening, patient began having right lower quadrant pain and periumbilical pain. Currently, it is 7 out of 10, does not radiate, cramping/aching, made worse by walking or anything that jars it, but not made better by anything in particular other than rest and avoiding movement. Has not had vomiting, but has had decreased p.o. intake and associated nausea. No constipation, diarrhea, fevers or chills, chest pain, cough, recent travel, similar sick contacts, or any other concerns. No history of abdominal surgeries or pathology. Related Data Home Medications Medication Instructions Recorded Confirmed sertraline 100 mg tablet 100 mg PO DAILY Anxiety 04/26/22 04/26/22 Previous Rx's Medication Instructions Recorded azithromycin 250 mg tablet 250 mg PO DIRECTED #6 tabs 04/26/22 fluticasone propionate 50 1 spray intranasal DAILY #9.9 mL 04/26/22 mcg/actuation nasal spray,suspension Allergies Allergy/AdvReac Type Severity Reaction Status Date / Time No Known Allergies Allergy Verified 12/25/19 13:38 [facility] Disclaimer: The information contained in this section may have been updated after the patient was seen, as this information can be updated by other users. 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: Yes ROS Obtained: Yes All systems reviewed & no additional complaints except as documented Physical Exam General General appearance: alert and in no apparent distress Head Head exam: atraumatic, normocephalic and normal inspection Eye Eye exam: Present normal appearance, PERRL and EOMI ENT ENT exam: Present normal exam, normal oropharynx, mucous membranes moist, TM's normal bilaterally and normal external ear exam Neck Neck exam: Present normal inspection, full ROM and trachea midline; Absent meningismus or lymphadenopathy Chest Chest inspection: Present normal inspection and symmetric chest wall rise; Absent tenderness Respiratory Respiratory exam: Present normal lung sounds bilaterally; Absent respiratory distress Cardiovascular Cardiovascular exam: Present regular rate and normal rhythm; Absent JVD Abdominal Exam Abdominal exam: Present soft, tenderness, guarding, normal bowel sounds, heel tap sign and tenderness at McBurney's Point; Absent distention, rebound, rigidity, [place]
--- NOTE | 2022-06-15 13:33 | PC.NURSE ---
PT BACK FROM CT
[2022-06-15 13:36] LABS: C-Reactive Protein 35.1 mg/L (0-4)
[2022-06-15 13:40] LABS: Lactic Acid 0.7 mmol/L (0.7-2.1)
[2022-06-15 14:20] LABS: Microscopic, Urine URINE MICROSCOPIC (MICROSCOPIC)
[2022-06-15 14:27] LABS: Appearance,Urine CLEAR (Clear); Bilirubin,Urine Negative (Negative); Blood, Urine Negative (Negative); Color,Urine YELLOW (Yellow); Glucose,Urine (UA) Negative (Negative); Ketones,Urine Negative (Negative); Leukocyte Esterase,Urine Negative (Negative); Nitrate,Urine Negative (Negative); PH,Urine 6.5 (5.0-8.5); Protein,Urine Negative (Negative); Urobilinogen,Urine 0.2 EU/dl (0.2)
[2022-06-15 14:41] LABS: Bacteria,Urine Trace /lpf; Squamous Epithelial Cell,Urine Occasional #/hpf (0-5)
--- NOTE | 2022-06-15 14:56 | PC.NURSE ---
rounded on pt no complaints at this time, at bs
--- NOTE | 2022-06-15 15:28 | PC.NURSE ---
paging dr summers for er md to speak with dr garza
--- NOTE | 2022-06-15 15:29 | PC.NURSE ---
James López speaking with
--- NOTE | 2022-06-15 16:21 | EXP.GEN.HP ---
HPI HPI HPI: Patient is a 36-year-old healthy male. He states that in the afternoon of 06/14/2022 he had developed acute onset of periumbilical pain. Pain became more persistent and somewhat more localized to the right lower quadrant. He had some nausea without vomiting. He had anorexia. He presented to the emergency department in the afternoon of 06/15/2022 where he was seen and evaluated. He was found to have a normal white blood cell count. He underwent CT scan which revealed findings of a possible early appendicitis without evidence of rupture or abscess. Surgical consultation was obtained. Patient was seen and examined. He had tenderness with guarding at McBurney's point. Given clinical scenario and objective findings it was felt that this was likely appendicitis. [facility] Disclaimer: The information contained in this section may have been updated after the patient was seen, as this information can be updated by other users. 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 caffeine: Yes Meds Home Medications and Allergies Home Medications Medication Instructions Recorded Confirmed Type azithromycin 250 mg tablet 250 mg PO DIRECTED #6 tabs 04/26/22 Rx fluticasone propionate 50 1 spray intranasal DAILY #9.9 mL 04/26/22 Rx mcg/actuation nasal spray,suspension sertraline 100 mg tablet 100 mg PO DAILY Anxiety 04/26/22 04/26/22 History New Prescriptions to Start Prescriptions: Allergies Allergy/AdvReac Type Severity Reaction Status Date / Time No Known Allergies Allergy Verified 12/25/19 13:38 Exam Data for Last 24 hours Vital signs and Labs for Last 24 Hours: Temp Pulse Resp BP Pulse Ox 98 F 70 16 131/85 95 06/15/22 11:48 06/15/22 16:00 06/15/22 13:35 06/15/22 16:00 06/15/22 16:00 Laboratory Results - last 24 hr 06/15/22 12:07: WBC 9.4, RBC 5.57, Hgb 16.5, Hct 48.4, MCV 86.9, MCH 29.6, MCHC 34.1, RDW 13.0, Plt Count 348, MPV 7.1 L, Neut % (Auto) 59.2, Lymph % (Auto) 29.0, Bledsoe % (Auto) 8.6, Eos % (Auto) 2.4, Baso % (Auto) 0.7, Neut # (Auto) 5.6, Lymph # (Auto) 2.8, Bledsoe # (Auto) 0.8, Eos # (Auto) 0.2, Baso # (Auto) 0.1 06/15/22 12:07: Sodium 140, Potassium 3.8, Chloride 97 L, Carbon Dioxide 30, Anion Gap 16.8 H, BUN 15, Creatinine 1.10, Estimated Creat Clear 149, Estimated GFR 76, Est GFR ( Amer) 92, Glucose 78, Calcium 9.2, Total Bilirubin 0.7, AST 46, ALT 57, Alkaline Phosphatase 101, Total Protein 8.1, Albumin 4.7, Globulin 3.4 H, Albumin/Globulin Ratio 1.4, Amylase 123 H, Lipase 131 06/15/22 12:07: C-Reactive Protein 35.1 H 06/15/22 13:26: Lactate 0.7 06/15/22 14:10: Urine Color Yellow, Urine Appearance Clear, Urine pH 6.5, Ur Specific [place] 1.010, Urine Protein Negative, Urine Glucose (UA) Negative, Urine Ketones Negative, Urine Blood Negative, Urine Nitrate Negative, Urine Bilirubin Negative, Urine Urobilinogen 0.2, Ur Leukocyte Esterase Negative, Urine RBC None, Urine WBC 3-5, Ur Squamous Epith Cells Occasional, Urine Bacteria Trace I & O for Last 24 hours: Intake & Output 06/13/22 06/14/22 06/15/22 06/16/22 11:59 11:59 11:59 11:59 Weight 250 lb Constitutional Constitutional: no acute distress *Routine HEENT Exam Head: Present normocephalic Eye: Present EOMI and PERRL ENT: Present mucous membranes moist *Routine Neck Exam Neck: Present supple; Absent lymphadenopathy *Routine Respiratory Exam Respiratory: Present CTA bilaterally *Routine Cardiovascular Exam Cardiovascular: Present RRR *Routine Abdominal Exam Abdominal: Present soft, normoactive bowel sounds and tenderness Comments: He has tenderness with guarding at McBurney's point. *Routine Rectal Exam Rectal::
--- NOTE | 2022-06-15 16:23 | PC.NURSE ---
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
--- NOTE | 2022-06-15 16:28 | PC.NURSE ---
ATB AND LR PULLED READY FOR SURGERY
--- NOTE | 2022-06-15 16:33 | PC.NURSE ---
PT GOING UP WITH THE SURGERY TEAM
--- NOTE | 2022-06-15 16:36 | PC.NURSE ---
PT TO SURGERY
--- NOTE | 2022-06-15 17:08 | EXP.ANES.CKL ---
[facility] Disclaimer: The information contained in this section may have been updated after the patient was seen, as this information can be updated by other users. 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 caffeine: Yes [facility] Anesthesia Checklist Patient Identification Patient Identification: Arm Band and Verbal (Name & ) Structural Data Admitted From: Emergency Dept Planned Operative Procedure/s: Laparascopic Appendectomy Verified Documents: Surgical Consent NPO Status Verified Time NPO: 10:00 Additional verifications Anesthesia Reactions: No Hx Blood Transfusions: No Blood Transfusion Reaction: No Airway Assessment C-Spine Mobility Assessed: Yes TMJ Mobility Assessed: Yes Dentition: Good Dentition Neurological Assessment Level of Consciousness: Awake, Alert and Appropriate Anesthesia Plan Anesthesia Risk discussed: Yes Anesthesia Type: General
--- NOTE | 2022-06-15 18:11 | EXP.OP.NOTE ---
Date of procedure: 06/15/22 Pre-op Diagnosis:: Acute appendicitis Post-op Diagnosis:: Same Procedure performed:: Laparoscopic appendectomy Surgeon:: James Ziegler MD BAGGAGE AGENT SUPERVISOR:: Juan Daniel Andujar Anesthesia: JENIFER Estimated blood loss (mL): 30 Clinical Note:: Patient is a pleasant healthy 36-year-old male. He states that in the afternoon of 06/14/2022 he had acute onset of periumbilical pain. Pain became more persistent and somewhat more localized to the right lower quadrant. He had some associated nausea. Due to the persistence of the pain he presented to the emergency department in the afternoon of 06/15/2022. He had a normal white blood cell count. CT scan was performed which revealed findings possibly consistent with uncomplicated appendicitis. Surgical consultation was obtained. Patient was seen and examined. Given clinical history and findings on CT scan plan was made to proceed with appendectomy. Operative findings:: He had an acutely inflamed and indurated appendix which was somewhat twisted and partially retrocecal. Operative note:: Patient was taken the operating room. He was given preoperative intravenous antibiotic. In the operating room he was placed in a supine position. General anesthesia was induced via endotracheal tube. Abdomen was prepped and draped in the standard surgical fashion. Please note that Nogueira catheter was placed prior to prepping and draping. Subumbilical incision was made. While performing abdominal wall lift Veress needle was inserted. CO2 pneumoperitoneum was achieved to 15 mmHg. 12 mm optical trocar was inserted at the umbilicus. Intraperitoneal contents were visualized. 5 mm trocar was inserted in the suprapubic location. Additional 5 mm trocar was inserted in the right upper abdomen. Appendix was identified and found to be acutely inflamed but nonperforated and nonsuppurative. It was somewhat twisted with some adhesions. 0 degree laparoscope was replaced with the 5 mm 30 degree laparoscope. Appendix was grasped with an endoscopic Earle. Dissection was carried down dividing the mesoappendix. Peritoneal attachments near the base was partially retrocecal were divided. The appendiceal artery within the mesoappendix was carefully coagulated with FÁTIMA ultrasonic harmonic jolene and divided. Dissection was carried down to the appendiceal base. The appendix was divided at its base with a couple of firings of the endoscopic DESHAWN linear cutting stapling device with a tiny cuff of cecum removed along with the appendix. Inspection was carried out and there is some minor oozing from the staple line which was controlled with placement of a single Hemoclip. Irrigation and suctioning was carried out of the pericecal location. Staple line was inspected for hemostasis and integrity which was assured. Trocars were then removed as CO2 pneumoperitoneum was evacuated. Fascia at the umbilicus was closed with several interrupted 0 Vicryl sutures. Local anesthetic was infiltrated. Skin incisions were closed with 4-0 Monocryl in a subcuticular fashion. Steri-Strips and dressings were applied. Condition: stable Disposition: PACU Complications:: None immediately apparent
--- NOTE | 2022-06-15 18:16 | P.PNANES_ITS ---
[facility] Anesthesia Record Part I Anesthesia Record I Intake, IV Amount: 1,500 Estimated blood loss (mL): 10 Urine output (mL): 100 Blood Pressure: 148/87 SaO2: 94 Pulse Rate: 89 Respiratory Rate: 16 Temperature: 97 F Patient is:: Drowsy and Stable Stable to PACU at:: 18:15
[2022-06-15 19:23] LABS: Microscopic,Cath URINE MICROSCOPIC (MICROSCOPIC)
[2022-06-15 19:33] LABS: Appearance,Urine/Cath CLEAR (Clear); Bilirubin,Cath Negative (Negative); Blood, Urine/Cath Negative (Negative); Color,Urine/Cath YELLOW (Yellow); Glucose,Urine/Cath (UA) Negative (Negative); Ketones,Urine/Cath Negative (Negative); Leukocyte Esterase,Cath Negative (Negative); Nitrate,Cath Negative (Negative); PH,Urine/Cath 6.5 (5.0-8.5); Protein,Urine/Cath Negative (Negative); Urobilinogen,Cath 0.2 EU/dl (0.2)
[2022-06-15 20:16] LABS: WBC,Urine/Cath Occasional #/hpf (0-3)
--- NOTE | 2022-06-16 08:25 | EXP.ANES.II ---
[facility] Anesthesia Record Part II Anesthesia Record Part II Discharge Time: 18:45 Destination: Surgical Day Care (OP Surgery) PACU nurse assessment reviewed?: Yes Patient Condition:: Good Anesthesia Complications:: None Swallowing reflex intact?: Yes Cyanosis?: No Blood Pressure: 175/95 Pulse Rate: 96 Temperature: 97 F Mental Status: Alert & Oriented Pain level:: 0 Nausea and/or vomitting:: None Intake, IV Amount: 0
[2022-06-16 08:26] VITALS: BP 175/95; PULSE 96; TEMP 36.1
== END 2022-06-15 19:16 | disposition home or self-care (01) ==
LOC: ER 16:20 → SDC 17:14
PROVIDERS: Emergency Provider Emergency Medicine; PCP Nurse Practitioner Family; Visit Provider Surgery
PROC: 0DTJ4ZZ Resection of Appendix, Percutaneous Endoscopic Approach (ICD-10-PCS; CPT 44970; principal; 2022-06-15 16:45)
DX: K35.80 Unspecified acute appendicitis (principal)
CPT/HCPCS: 44970; 74177; 80053; 81001; 82150; 83605; 83690; 85025; 86140; 96374; J0330; J2405; Q9967

== ENCOUNTER 2022-11-24 08:39 | Emergency (ER) | payer BC, SELFPAY ==
[2022-11-24] VITALS (10 sets, daily range): BP systolic 113–168; BP diastolic 67–112; PULSE 67–98; RESP 16–18; TEMP 36.4–36.7; O2SAT 96–100; BMI 33.6
--- NOTE | 2022-11-24 08:59 | PC.NURSE ---
Dr. Garnica at bedside for eval
--- NOTE | 2022-11-24 09:12 | CT_ITS ---
FINAL REPORT TECHNIQUE: Axial images through the abdomen and pelvis were performed without contrast. This study was performed with techniques to keep radiation doses as low as reasonably achievable, (ALARA). Individualized dose reduction techniques using automated exposure control or adjustment of mA and/or kV according to the patient's size were employed. CLINICAL HISTORY: left flank pain history of kidney stones COMPARISON: June 2022 FINDINGS: ABDOMEN: The lung bases are clear. The heart size is normal. Limited images of the liver are unremarkable. The gallbladder is present. The spleen is normal. No adrenal mass is identified. The aorta is normal in caliber. There is no significant free fluid or adenopathy. There are several small bilateral nonobstructing renal stones. There is mild left hydronephrosis secondary to a 6 mm left UPJ stone. PELVIS: The appendix is not identified and may be surgically absent. The urinary bladder is unremarkable. There is no significant free fluid or adenopathy. There is a small right inguinal hernia containing fat. IMPRESSION: Mild left hydronephrosis secondary to a 6 mm left UPJ stone. Bilateral nephrolithiasis. Reviewed, Interpreted and Dictated by James Rivera III, MD Transcribed by Jace Vega Authenticated and [facility]
--- NOTE | 2022-11-24 09:15 | HMH.EDGENADL ---
Discharge Plan Disposition Patient Disposition: Xfer Other Prescriptions Prescriptions: No Action omeprazole 40 mg capsule,delayed release(DR/EC) 40 mg PO DAILY sertraline 100 mg tablet 100 mg PO DAILY Patient Comments: TAKE ONE TABLET BY MOUTH EVERY DAY Referrals Follow up/Referrals: Travis Craft MD [Primary Care Provider] - See instructions Clinical Impressions Clinical Impression: Hydronephrosis with renal and ureteral calculous obstruction, Intractable pain Discharge ED Provider: Mykel Garnica General Adult HPI General Chief complaint: PAIN Stated complaint: lower back pain, no accident Time Seen by Provider: 11/24/22 08:56 Mode of Arrival: Ambulatory Source of Information: Patient Limitations: No Limitations Description of Symptoms (Recalled from ER Triage Doc. by RN): Patient reports left lower back pain that started approx 1 hour ago. Patient states that he has had a recent CT scan that showed kidney stones. History of Present Illness HPI narrative: Patient is a 37-year-old male with a history of multiple kidney cyst in the past all of which required surgical intervention has never been able to pass 1 is then presented today with similar symptoms. States symptoms began about an hour and a half ago left flank severe in nature. No frequency urgency dysuria or hematuria. No fevers or chills. Most recent intervention was [address] Lin requiring lithotripsy and stent placement. Related Data Home Medications Medication Instructions Recorded Confirmed sertraline 100 mg tablet 100 mg PO DAILY Anxiety 04/26/22 07/07/22 omeprazole 40 mg capsule,delayed 40 mg PO DAILY 07/07/22 07/07/22 release Allergies Allergy/AdvReac Type Severity Reaction Status Date / Time No Known Allergies Allergy Verified 07/07/22 09:44 [facility] Disclaimer: The information contained in this section may have been updated after the patient was seen, as this information can be updated by other users. 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 caffeine: Yes ROS Obtained: Yes All systems reviewed & no additional complaints except as documented Physical Exam General General appearance: in distress (In pain) Respiratory Respiratory exam: Present normal lung sounds bilaterally Cardiovascular Cardiovascular exam: Present regular rate Abdominal Exam Abdominal exam: Present soft and distention; Absent tenderness Back Exam Back exam: Absent CVA tenderness (L) Neurological Exam Neurological exam: Present alert and oriented X3 Medical Decision Making Uday Inquiry Pt receiving controlled substance: No Vital Signs: 11/24/22 08:39 11/24/22 08:42 11/24/22 09:59 Temperature 97.6 F Temperature Source Oral Pulse Rate 86 90 Pulse Rate [Radial] 67 Respiratory Rate 16 Blood Pressure 168/97 H 163/103 H Blood Pressure [Right Arm] 168/97 H Blood Pressure Mean [Right Arm] 120 Blood Pressure Source [Right Arm] Automatic Cuff Blood Pressure Position [Right Arm] Sitting 02 Sat by Pulse Oximetry 97 96 100 Oxygen Delivery Method Room Air 11/24/22 10:00 Temperature Temperature Source Pulse Rate 87 Pulse Rate [Radial] Respiratory Rate Blood Pressure 165/105 H Blood Pressure [Right Arm] Blood Pressure Mean [Right Arm] Blood Pressure Source [Right Arm] Blood Pressure Position [Right Arm] 02 Sat by Pulse Oximetry 100 Oxygen Delivery Method Lab Data Lab Results 11/24/22 08:53: WBC 10.6, RBC 5.58, Hgb 17.3, Hct 49.6, MCV 89.0, MCH 31.0, MCHC
[2022-11-24 09:26] LABS: Basophils # 0.1 K/mm3 (0-0.2); Basophils % 0.7 % (0.1-2.0); Eosinophils # 0.2 K/mm3 (0.0-0.4); Eosinophils % 1.8 % (0.1-12.0); Hematocrit 49.6 % (42.0-52.0); Hemoglobin 17.3 g/dL (14.1-18.0); Lymphocytes % 28.5 % (10-50); Mean Corpuscular HGB Conc 34.8 g/dL (31.8-35.4); Mean Platelet Volume 7.7 fl (7.4-10.4); Monocytes # 0.8 K/mm3 (0.1-1.0); Monocytes % 7.8 % (1.7-9.3); Neutrophils # 6.5 K/mm3 (1.8-7.8); Neutrophils % 61.1 % (37.0-80.0); Platelet Count 361 K/mm3 (142-424); Red Blood Count 5.58 M/mm3 (4.60-6.20); Red Cell Distribution Width 13.2 % (11.5-17.5); White Blood Count 10.6 K/mm3 (4.8-10.8)
[2022-11-24 09:32] LABS: Chloride 102 mmol/L (98-107); Potassium 3.5 mmoL/L (3.5-5.1); Sodium 141 mmol/L (136-145)
--- NOTE | 2022-11-24 09:32 | PC.NURSE ---
Pt gone to RAD via stretcher
[2022-11-24 09:35] LABS: Alanine Aminotransferase 84 U/L (12-78); Albumin Level 4.8 g/dl (3.5-5.0); Albumin/Globulin Ratio 1.3 (1.1-1.8); Alkaline Phosphatase 96 U/L (38-126); Anion Gap 12.5 mEq/L (5-15); Aspartate Amino Transferase 54 U/L (17-59); Bilirubin,Total 0.5 mg/dl (0.2-1.3); Blood Urea Nitrogen 17 mg/dl (9-20); Carbon Dioxide 30 mmol/L (22.0-30.0); Creatinine Clearance Estimated 150 mL/min (50-200); Estimated Glomerular Filt Rate 75 ml/min (>60); GFR (African American) 91 ML/MIN (>60); Globulin 3.8 g/dL (1.3-3.2); Total Protein,Serum 8.6 g/dl (6.3-8.2)
[2022-11-24 09:36] LABS: Calcium 9.5 mg/dl (8.4-10.2); Glucose 103 mg/dl (74-100)
--- NOTE | 2022-11-24 09:40 | PC.NURSE ---
Pt returned from RAD
--- NOTE | 2022-11-24 10:07 | PC.NURSE ---
Spoke with [facility] transfer [place] about transfer, advised they would call back with a provider
--- NOTE | 2022-11-24 10:12 | PC.NURSE ---
Dr. Garnica at BS to update pt on POC
--- NOTE | 2022-11-24 10:34 | PC.NURSE ---
Dr. Garnica speaking with Dr. Baez at [facility]
--- NOTE | 2022-11-24 10:37 | PC.NURSE ---
Pt accepted to [facility] by Dr. Baez. Facesheet faxed to [phone].
[2022-11-24 11:48] LABS: Microscopic, Urine URINE MICROSCOPIC (MICROSCOPIC)
[2022-11-24 11:51] LABS: Appearance,Urine CLEAR (Clear); Blood, Urine 3+ (Negative); Color,Urine YELLOW (Yellow); Glucose,Urine (UA) Negative (Negative); Ketones,Urine TRACE (Negative); Leukocyte Esterase,Urine Negative (Negative); Nitrate,Urine Negative (Negative); Protein,Urine 1+ (Negative); Specific Gravity, Urine >= 1.030 (1.005-1.030); Urobilinogen,Urine 0.2 EU/dl (0.2)
--- NOTE | 2022-11-24 12:05 | PC.NURSE ---
Pt ambulatory to bathroom and back to bed. No other needs voiced.
[2022-11-24 12:14] LABS: Bilirubin,Urine 1+ (Negative)
--- NOTE | 2022-11-24 12:14 | PC.NURSE ---
pt visitor stated pt was starting to hurt again. aware
[2022-11-24 12:19] LABS: RBC,Urine 50-100 #/hpf (0-3)
--- NOTE | 2022-11-24 12:52 | PC.NURSE ---
xuan funes called for pt social bc it was not on facesheet
--- NOTE | 2022-11-24 13:28 | PC.NURSE ---
rounded on pt no needs, call light at bs
--- NOTE | 2022-11-24 14:31 | PC.NURSE ---
Called transfer center to check bed status. Advised they still have no bed availability at this time, but they do have discharges later this day. notified.
--- NOTE | 2022-11-24 14:51 | PC.NURSE ---
Advised pt they have been accepted to [facility], but we are waiting for them to call with an open bed, so pt will be admitted to second floor here until they call.
--- NOTE | 2022-11-24 15:00 | PC.NURSE ---
Notified CM of pt admission
--- NOTE | 2022-11-24 15:41 | PC.NURSE ---
Called report to Joy HERNANDEZ at [facility]
== END 2022-11-24 16:18 | disposition other institution (70) ==
LOC: ER 10:39 → 2ND 15:29
PROVIDERS: Emergency Provider Student in an Organized Health Care Education/Training Program; PCP Internal Medicine Adolescent Medicine
DX: N20.2 Calculus of kidney with calculus of ureter (principal); R10.0 Acute abdomen; Z87.442 Personal history of urinary calculi
CPT/HCPCS: 74176; 80053; 81001; 85025; 96361; 96374; 96375; 96376; 99285; J2405

== ENCOUNTER 2023-06-21 09:02 | Outpatient (CLI) | payer BC, SELFPAY ==
[2023-06-21 09:25] LABS: Basophils # 0.1 K/mm3 (0-0.2); Basophils % 0.9 % (0.1-2.0); Eosinophils # 0.1 K/mm3 (0.0-0.4); Eosinophils % 1.3 % (0.1-12.0); Hematocrit 49.2 % (42.0-52.0); Hemoglobin 15.9 g/dL (14.1-18.0); Lymphocytes # 1.2 K/mm3 (0.7-4.5); Lymphocytes % 22.9 % (10-50); Mean Corpuscular HGB Conc 32.3 g/dL (31.8-35.4); Mean Corpuscular Hemoglobin 29.9 pg (27.0-31.2); Mean Corpuscular Volume 92.7 fl (80-94); Mean Platelet Volume 7.7 fl (7.4-10.4); Monocytes # 0.4 K/mm3 (0.1-1.0); Monocytes % 7.9 % (1.7-9.3); Neutrophils # 3.5 K/mm3 (1.8-7.8); Neutrophils % 67.1 % (37.0-80.0); Platelet Count 304 K/mm3 (142-424); Red Cell Distribution Width 13.3 % (11.5-17.5); White Blood Count 5.2 K/mm3 (4.8-10.8)
[2023-06-21 10:08] LABS: Chloride 105 mmol/L (98-107); Sodium 138 mmol/L (136-145)
[2023-06-21 10:09] LABS: Potassium 4.7 mmoL/L (3.5-5.1)
[2023-06-21 10:11] LABS: Alanine Aminotransferase 29 U/L (12-78); Albumin Level 4.5 g/dl (3.5-5.0); Albumin/Globulin Ratio 1.7 (1.1-1.8); Alkaline Phosphatase 73 U/L (38-126); Anion Gap 7.7 mEq/L (5-15); Aspartate Amino Transferase 29 U/L (17-59); Bilirubin,Total 0.9 mg/dl (0.2-1.3); Blood Urea Nitrogen 20 mg/dl (9-20); Carbon Dioxide 30 mmol/L (22.0-30.0); Cholesterol 199 mg/dl (140-200); Estimated Glomerular Filt Rate 84 ml/min (>60); GFR (African American) 102 ML/MIN (>60); Globulin 2.6 g/dL (1.3-3.2); Total Protein,Serum 7.1 g/dl (6.3-8.2); Triglycerides 51 mg/dl (30-150); VLDL Cholesterol 10 mg/dL (0-40)
[2023-06-21 10:12] LABS: Calcium 9.8 mg/dl (8.4-10.2); Chol/HDL Ratio 3.8 (1-3.5); Glucose 93 mg/dl (74-100); HDL Cholesterol 53 mg/dl (40-60)
[2023-06-21 10:24] LABS: Direct LDL Cholesterol 122.01 mg/dL (100-129)
[2023-06-21 10:27] LABS: Triiodothryronine (T3) Uptake 35 % (23.5-40.5)
[2023-06-21 10:28] LABS: Free Thyroxine Index 3.9 ug/dL (5.93-13.13)
[2023-06-21 10:41] LABS: Thyroid Stimulating Hormone 0.58 uIU/mL (0.465-4.68)
[2023-06-21 11:56] LABS: Hemoglobin A1C 5.1 % (4.0-6.0)
[2023-06-22 07:11] LABS: HBsAg Screen Negative (Negative); HCV Ab Non Reactive (Non Reactive); Hep A Ab, IGM Negative (Negative); Hep B Core Ab, IgM Negative (Negative)
[2023-06-22 08:36] LABS: Testosterone,Total 448 ng/dL (264-916)
== END 2023-06-21 23:59 | disposition home or self-care (01) ==
LOC: LAB 09:02
PROVIDERS: PCP Internal Medicine Adolescent Medicine; Visit Provider Nurse Practitioner Family
DX: R74.8 Abnormal levels of other serum enzymes (principal); R68.82 Decreased libido; R06.02 Shortness of breath; Z79.899 Other long term (current) drug therapy
CPT/HCPCS: 36415; 80053; 80061; 80074; 83036; 84403; 84436; 84443; 84479; 85025

== ENCOUNTER 2023-07-08 10:49 | Outpatient (CLI) | payer BC, SELFPAY ==
--- NOTE | 2023-07-08 10:49 | CA_ITS ---
APPROVED REPORT EXAM: Comprehensive 2D, Doppler, and color-flow Echocardiogram Manager Subway: Suzanne Robertson CRT Ht: 6 ft 1 in Wt: 233lbs BSA: 2.30 BP: 159/94 mmHg Indications: Chest Pain, Shortness of Breath 2D Dimensions LA Volume 43.90 mL LA Volume Index [id number] mL/m2 (M/F) 16-34 M-Mode Dimensions RVDd 1.99 cm (0.9-2.6) LA Diam 3.59 cm (1.9-4.0) LVDd 5.56 cm (3.5-5.7) LVDs 3.46 cm (3.5-5.7) IVSd 1.24 cm (0.6-1.1) PWd 0.90 cm (0.6-1.1) EF (Teich) 67.30% FS 37.80% EDV (Teich) 151.20 mL TAPSE 1.58 (<1.7) ESV (Teich) 49.50 mL LV Diastology MED A' 8.20 cm/s LAT A' 9.30 cm/s Aortic Valve AO Peak GR. 6.70 mmHg Pulmonary Valve PV Peak Velocity 107.0 (50-150 cm/s) Tricuspid Valve TR P. Velocity 262.00 cm/s RAP Estimate 10.00 mmHg RVSP 37.40 mmHg Left Ventricle The left ventricle is normal size. The left ventricular systolic function is normal. The left ventricular ejection fraction is within the normal range. There is normal left ventricular wall thickness. There is normal LV segmental wall motion. The left ventricular diastolic function is normal. LVEF is 55%. Right Ventricle Right ventricle is mildly dilated. The right ventricular systolic function is normal. Atria The left atrium size is normal. The right atrium size is normal. There is no Doppler evidence of interatrial shunt. Aortic Valve The aortic valve opens well. There is no aortic valvular stenosis. No aortic regurgitation is present. Mitral Valve The mitral valve is normal in structure. No evidence of mitral valve stenosis. There is no mitral valve regurgitation noted. Tricuspid Valve The tricuspid valve leaflets are thin and pliable. Mild tricuspid regurgitation. RVSP is 15-20 mmHg. Pulmonic Valve The pulmonary valve is normal in structure. Trace pulmonic regurgitation. Great Vessels The aortic root is normal in size. The ascending aorta is normal in size. IVC is normal in size and collapses >50% with inspiration. Pericardium There is no pericardial effusion. Other Information Study Quality: Fair Conclusion Normal biventricular systolic function. Mild RV dilation. Mild TR. Electronically signed by : Maria M Dey MD 07/13/2023 19:09:17
--- NOTE | 2023-07-08 10:49 | CA_ITS ---
APPROVED REPORT Exam: Exercise Treadmill Technologist: Denise Clement, Ht: 6 ft 1 in Wt: 233 lbs BSA: 2.30 m2 HR: 63 bpm BP: 134/88 mmHg Rhythm: NSR, ST-T abnormalities in inferior leads Medical History Medications: Omeprazole,,,,, Cardiac Risk Factors: FHX of CAD Stress Test Details Test: Tk HR Resting HR: 67 bpm Max Heart Rate (APMHR): 183 bpm Max HR Achieved: 165 bpm Target HR (85% APMHR): 156 bpm % of APMHR: 90 Recovery HR: 137 bpm HR response to stress: Normal HR response to stress BP Resting BP: 128.0/85 mmHg Max BP: 175/86 mmHg Recovery BP: 166.0/97.0 mmHg BP response to stress: Normal blood pressure response to stress. ECG Resting ECG: NSR, ST-T abns in inferior leads Stress ECG: < 0.[address] depression Arrhythmia: None Recovery ECG: Return to baseline within 3 minutes of recovery Recovery Arrhythmia: None Clinical Exercise duration: 09:41 min Highest Stage Achieved: Exercise capacity: 10.1 METs Overall Exercise Capacity for Age: Average Stress ECG Conclusion During tk protocol pt exercised total of 9:41 minutes. The patient achieved a total of 10.1 METS. He has average exercise capacity compared to age and sex matched peers. He has normal HR and BP response to exercise. Ectopy: No arrhythmias noted. ST changes: 0.[address] depression Conclusion: Average exercise capacity. Normal reponse to exercise. Normal GXT (GXT only). Test Summary REST . . . . . . . Standing REST . . . . . . . Standing REST 03:44 0.0 0.0 67 . 128/ 85 . . Stage 1 01:00 10.0 1.7 98 . . . . Stage 1 02:00 10.0 1.7 97 . . . . Stage 1 03:00 10.0 1.7 100 . 154/ 88 . . Stage 2 01:00 12.0 2.5 119 . . . . Stage 2 02:00 12.0 2.5 121 . . . . Stage 2 03:00 12.0 2.5 123 . 158/ 86 . . Stage 3 01:00 14.0 3.4 142 . . . . Stage 3 02:00 14.0 3.4 149 . . . . Stage 3 03:00 14.0 3.4 152 . 175/ 86 . . Stage 4 00:41 16.0 4.2 164 . . . Stop exercise at 09:41 RECOVERY 01:00 0.0 0.0 137 . . . . RECOVERY 02:00 0.0 0.0 103 . . . . RECOVERY 03:00 0.0 0.0 94 . 166/ 97 . . RECOVERY 04:00 0.0 0.0 107 . 147/ 90 . . RECOVERY 05:00 0.0 0.0 99 . 147/ 90 . . RECOVERY 06:00 0.0 0.0 87 . 158/ 98 . . RECOVERY 06:17 0.0 0.0 88 . 138/ 91 . . Electronically signed by : Maria M Dey MD 07/15/2023 01:20:38
== END 2023-07-08 23:59 | disposition home or self-care (01) ==
LOC: RT 10:49
PROVIDERS: PCP Internal Medicine Adolescent Medicine; Visit Provider Physician Assistant
DX: R07.9 Chest pain, unspecified (principal); R06.09 Other forms of dyspnea; Z82.49 Family history of ischemic heart disease and other diseases of the circulatory system
CPT/HCPCS: 93017; 93018; 93306